=== PATIENT | male | born 1935 | race Caucasian/White ===

== ENCOUNTER 2017-06-08 13:03 | Inpatient (IN) | payer OTHER, BC ==
[~2017-06-08] VITALS: Ht 180.3 cm; Wt 97.0 kg
[2017-06-08 14:15] LABS: HEMATOCRIT 49.2 % (38.0-50.0); MCH 30.5 PG (29.0-34.0); MCHC 33.3 G/DL (30.0-36.0); MCV 91.6 FL (86-99); MEAN PLAT.VOLUME 9.9 uM^3 (9.0-12.4); PLATELET COUNT 167 K/uL (156-360); RBC DIS.WIDTH-CV 13.2 % (11.8-14.6); RBC DIS.WIDTH-SD 44.4 % (39-53); RED BLOOD COUNT 5.37 M/uL (4.00-5.50); WHITE BLOOD COUNT 8.1 K/uL (4.1-10.2)
[2017-06-08 14:24] LABS: CHLORIDE 102 mEq/L (99-109); POTASSIUM 4.1 mEq/L (3.7-5.4); SODIUM 140 mEq/L (136-147)
[2017-06-08 14:25] LABS: GLUCOSE 99 mg/dL (70-99)
[2017-06-08 14:27] LABS: ANION GAP 9 MEQ/L (2-14)
[2017-06-08 14:29] LABS: GFR ESTIMATE (CALCULATED) > 59 mL/min/
[2017-06-08 14:30] LABS: UREA NITROGEN (BUN) 29 mg/dL (9-23)
[2017-06-08 14:36] LABS: TROP-I INTERPRETATION NEGATIVE; TROPONIN-I 0.01 ng/mL (0.0-0.30)
[2017-06-08] MEDS ORDERED: VALSARTAN-HCTZ1 EAC2 PO (16:36)
[2017-06-08] MEDS ORDERED: ALLOPURINOL100 MG PO (16:36)
[2017-06-08] MEDS ORDERED: BREO ELLIPTA I1 EACH IH (16:37)
[2017-06-08] MEDS ORDERED: TOPROL XL100 MG PO (16:37)
[2017-06-08] MEDS ORDERED: LEVOTHYROXINE150 MCG PO (16:37)
[2017-06-08] MEDS ORDERED: ASPIR 8181 M1 PO (16:38)
[2017-06-08] MEDS ORDERED: ATORVASTATIN CA10 MG PO (16:38)
[2017-06-08] MEDS ORDERED: FLOMAX0.4 MG PO (16:38)
[2017-06-09 00:35] LABS: TROP-I INTERPRETATION NEGATIVE; TROPONIN-I 0.01 ng/mL (0.0-0.30)
[2017-06-09 05:47] LABS: CHLORIDE 103 mEq/L (99-109); POTASSIUM 4.2 mEq/L (3.7-5.4); SODIUM 141 mEq/L (136-147)
[2017-06-09 05:48] LABS: GLUCOSE 98 mg/dL (70-99)
[2017-06-09 05:50] LABS: ANION GAP 6 MEQ/L (2-14)
[2017-06-09 05:52] LABS: GFR ESTIMATE (CALCULATED) > 59 mL/min/
[2017-06-09 05:53] LABS: UREA NITROGEN (BUN) 23 mg/dL (9-23)
[2017-06-09 05:56] LABS: TROP-I INTERPRETATION NEGATIVE; TROPONIN-I 0.02 ng/mL (0.0-0.30)
[2017-06-09 05:57] LABS: HEMATOCRIT 48.9 % (38.0-50.0); MCH 30.2 PG (29.0-34.0); MCHC 32.7 G/DL (30.0-36.0); MCV 92.4 FL (86-99); MEAN PLAT.VOLUME 10.6 uM^3 (9.0-12.4); PLATELET COUNT 173 K/uL (156-360); RBC DIS.WIDTH-CV 13.2 % (11.8-14.6); RED BLOOD COUNT 5.29 M/uL (4.00-5.50); WHITE BLOOD COUNT 7.4 K/uL (4.1-10.2)
[2017-06-09 07:48] VITALS: BP 152/99
[2017-06-09 07:53] VITALS: BP 138/73
[2017-06-09 11:33] VITALS: BP 142/59
[2017-06-09 15:18] VITALS: BP 132/81
[2017-06-09 19:52] VITALS: BP 166/83
[2017-06-10 00:35] VITALS: BP 144/89
[2017-06-10 05:04] VITALS: BP 151/83
[2017-06-10 05:49] LABS: HEMATOCRIT 49.3 % (38.0-50.0); MCH 30.7 PG (29.0-34.0); MCHC 33.5 G/DL (30.0-36.0); MCV 91.8 FL (86-99); MEAN PLAT.VOLUME 10.8 uM^3 (9.0-12.4); PLATELET COUNT 171 K/uL (156-360); RBC DIS.WIDTH-CV 13.2 % (11.8-14.6); RBC DIS.WIDTH-SD 44.5 % (39-53); RED BLOOD COUNT 5.37 M/uL (4.00-5.50); WHITE BLOOD COUNT 7.4 K/uL (4.1-10.2)
[2017-06-10 06:16] LABS: ANION GAP 10 MEQ/L (2-14); CHLORIDE 99 MEQ/L (99-109); GFR ESTIMATE (CALCULATED) > 59 mL/min/; GLUCOSE 124 mg/dL (70-99); SAMPLE HEMOLYSIS CHECK 0; SAMPLE ICTERIC CHECK 0; SAMPLE LIPEMIA CHECK 0; SODIUM 136 MEQ/L (136-147); UREA NITROGEN (BUN) 18 mg/dL (9-23)
[2017-06-10 07:36] VITALS: BP 153/80
[2017-06-10] MEDS ORDERED: MEDROL DOSEPAK4 MG PO (11:27)
[2017-06-10 13:05] VITALS: BP 128/78
== END 2017-06-10 15:55 | disposition home health service (06) | DRG 308 ==
LOC: EME 13:03 → EDOF 16:59 → ENRESERV 17:12 → EDOF 06-09 07:27 → ENRESERV 06-09 16:42 → 4EAST 06-09 18:08 → ENPENDDIS 06-10 → 4EAST 06-10 15:55
PROVIDERS: Internal Medicine
DX: I49.3 Ventricular premature depolarization (principal); J96.01 Acute respiratory failure with hypoxia; N17.9 Acute kidney failure, unspecified; I10 Essential (primary) hypertension; I27.2 Other secondary pulmonary hypertension; J84.112 Idiopathic pulmonary fibrosis; E03.9 Hypothyroidism, unspecified; M1A.9XX0 Chronic gout, unspecified, without tophus (tophi); N40.0 Benign prostatic hyperplasia without lower urinary tract symptoms; E78.00 Pure hypercholesterolemia, unspecified; R54 Age-related physical debility; Z87.891 Personal history of nicotine dependence; Z99.81 Dependence on supplemental oxygen; Z90.49 Acquired absence of other specified parts of digestive tract; Z79.82 Long term (current) use of aspirin
CPT/HCPCS: 71020; 80048; 83880; 84443; 84484; 85027; 93005; 93306; 94640; 94640 76; 94799; 99202; 99281; 99285; J1650; J1956; J7512

== ENCOUNTER → 2017-12-03 | Outpatient (CLI) | payer OTHER, BC ==
[~2017-12-03] MED LIST: ALLOPURINOL100 MG PO; ASPIR 8181 M1 PO; ATORVASTATIN CA10 MG PO; BREO ELLIPTA I1 EACH IH; FLOMAX0.4 MG PO; LEVOTHYROXINE150 MCG PO; MEDROL DOSEPAK4 MG PO; OFEV150 MG PO; TOPROL XL100 MG PO; VALSARTAN-HCTZ1 EAC2 PO
== END | disposition home or self-care (01) ==
LOC: AMB 10:52
PROC: 0JB70ZZ Excision of Back Subcutaneous Tissue and Fascia, Open Approach (ICD-10-PCS; principal; 2017-12-03)
DX: S31.000A Unspecified open wound of lower back and pelvis without penetration into retroperitoneum, initial encounter (principal); Z98.890 Other specified postprocedural states